=== PATIENT | female | born 1995 | race Caucasian/White ===

== ENCOUNTER 2018-01-31 10:35 | Observation (INO) | payer BC ==
[2018-01-31] MEDS ORDERED: ACETAMINOPHEN 500 MG TAB PO ONE (12:21)
[2018-01-31] MEDS ORDERED: NITROFURANTOIN MACROBID 100 MG CAP PO SCH (12:30)
--- NOTE | 2018-01-31 12:48 | GHP ---
[f rep st] HISTORY AND PHYSICAL DATE OF ADMISSION: 01/31/2018 ADMITTING DIAGNOSES: 1. Intrauterine at 23 weeks. 2. Dysuria. 3. Suprapubic pain. HISTORY OF PRESENT ILLNESS: Patient is a 22-year-old 1, para 0, at 23 weeks with estimated due date of 06/03/2018, by last menstrual period 09/03/2016 , and consistent with first trimester ultrasound per patient. Patient is visiting here from [place], where she gets her care with midwives. She presents to L&D with complaints of burning upon urination, suprapubic and urethral discomfort this morning at 6 a.m., as well as left flank pain. Patient denies any fevers, chills, nausea, or vomiting. She does endorse diarrhea this am and admits to not staying well hydrated. Patient denies any leakage of fluid or vaginal bleeding. States good movement. The patient gets her care in [place] with midwives and do not have any records. She does state she was treated for UTI and was urinating "straight blood" about 4 weeks ago, and was treated with antibiotics. Patient states is thus uncomplicated. PAST OBSTETRICAL HISTORY: This is patient's first . PAST GYNECOLOGICAL HISTORY: Cycles are regular. Patient denies a history of abnormal Pap smears or any exposure to STDs. ALLERGIES: No known drug allergies. MEDICATIONS: vitamins. PAST MEDICAL HISTORY: Unremarkable. PAST SURGICAL HISTORY: None. FAMILY HISTORY: Noncontributory. SOCIAL HISTORY: She is visiting here from [place] with her boyfriend, they are then in a week going to [place] on vacation. She denies any current alcohol, tobacco, or illicit drug use. REVIEW OF SYSTEMS: 10-point review of systems is negative. Pertinent positives noted in HPI home. PHYSICAL EXAMINATION: VITAL SIGNS: On admission, stable. Patient is afebrile. GENERAL: Patient is well-nourished, well developed female in no apparent distress. She is alert and oriented x3. SKIN: Warm, dry. No rash. CARDIOVASCULAR: Regular rate and rhythm. LUNGS: Clear to auscultation bilaterally. ABDOMEN: Gravid, soft, mild tenderness noted in suprapubic area. BACK: + CVA tenderness on the left. PELVIC: Deferred. LOWER EXTREMITIES: Normal to inspection without calf tenderness or edema. FHTs by dopplers 140's. LABORATORY DATA: Urine reveals trace ketones, 2+ blood, trace bacteria, 1+ mucus, 1+ glucose. ASSESSMENT: Patient is a 22-year-old 1, para 0, at 23 weeks who presents with dysuria, suprapubic pain, CVA tenderness consistent with UTI. PLAN: 1. Admit to Labor and Delivery for observation. 2. IV hydration. 3. Will send urine for culture. 4. Tylenol as needed for pain, as well as heating pad. 5. Will give 1 dose of Macrobid here and give her prescription with instructions to take for 7 days. 6. Plan for discharge; instructions reviewed with the patient. Recommend to increase water intake especially here at higher altitude. Complete full course of antibiotics. labor precautions given. To call our office while here in [place] with worsening symptoms, fevers/chills and Temp greater than 100.4. To keep scheduled visit in [place], will need urine SHAINA. /[id number]/MODL MTDD
== END 2018-01-31 13:30 | disposition home or self-care (01) ==
LOC: FLD 10:35
PROVIDERS: ADMIT Obstetrics & Gynecology; ATTEND Obstetrics & Gynecology
DX: O26.891 Other specified pregnancy related conditions, first trimester (principal); R30.0 Dysuria; R10.2 Pelvic and perineal pain; Z3A.23 23 weeks gestation of pregnancy
CPT/HCPCS: G0378 ×2

== ENCOUNTER 2018-02-01 10:18 | Inpatient (IN) | payer BC ==
[2018-02-01] MEDS ORDERED: PROMETHAZINE HCL 25 MG/ML INJ IVP PRN (11:06)
[2018-02-01] MEDS ORDERED: ACETAMINOPHEN 325 MG TAB PO PRN (11:07)
[2018-02-01] MEDS ORDERED: ACETAMINOPHEN 500 MG TAB PO PRN (11:22)
--- NOTE | 2018-02-01 11:22 | GHP ---
[f rep st] PREOP HISTORY AND PHYSICAL DATE OF ADMISSION: 02/01/2018 ADMITTING DIAGNOSIS: Intrauterine at 23-1/7 weeks' gestation with suspected pyelonephritis versus nephrolithiasis. HISTORY OF PRESENT ILLNESS: The patient is a 22-year-old, 1, para 0, at 23-1/7 weeks' gestat ion with an estimated due date of 06/03/2018, confirmed by a last menstrual period of 09/03/2016 and consistent with a first trimester ultrasound. 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 She is in [place] visiting family for the week. She originally pres ented to [facility] on the afternoon of the complaining of dysuria, urgency, frequency, and generalized low back pain. She was observed, had labs drawn, had a UA suggestive of acute cystitis, and she was discharged home on p.o. Macrobid. Throughout the evening, patient reported increasing pain that loc alized to her right CVA and flank, and had severe nausea/vomiting, unable to tolerate food, fluids, o r her antibiotics, and she continued to have dysuria. She denies uterine contractions, but has had i ncreasing abdominal cramping and has had diarrhea during this episode. No vaginal bleeding, no gross hematuria, and has had good movement. She has felt chills but denies fevers. Her highest tem perature was 99. She has had episodes of nausea, vomiting, diarrhea, and generalized malaise. Other than that, a 10-point review of systems is negative. The patient has no past obstetrical history. This is her first . PAST GYNECOLOGICAL HISTORY: Unremarkable. She has normal regular cycles. Denies history of abnorma l Pap smears or STDs, and she had a sure and regular last menstrual. PAST MEDICAL HISTORY: Unremarkable. PAST SURGICAL HISTORY: None. ALLERGIES: No known drug allergies. MEDICATIONS: Her only medications include vitamins, and she took 1 p.o. Macrobid upon disch arge yesterday. FAMILY HISTORY: Noncontributory. SOCIAL HISTORY: She is visiting here from [place] with her boyfriend. She is visiting family. She denies tobacco, alcohol, and drug use. PHYSICAL EXAM: VITAL SIGNS: Currently, her vital signs are stable. Her temperature is 37.2, blood pressure 116/65, heart rate of 61, respiratory rate of 16. She is 95% on room air. GENERAL: She is a well-developed, well-nourished, gravid female in no acute distress. LUNGS: Clear to auscultation bilaterally. HEART: Regular rate and rhythm. No murmurs. ABDOMEN: Gravid. No fundal tenderness . Moderate suprapubic tenderness and tenderness radiating to her right flank and significant CVA ten derness. No tenderness on her left. EXTREMITIES: No calf tenderness or redness. PELVIC: Exam was deferred. Doptones were acquired and were between the 160s and 170s. ASSESSMENT/PLAN: A 22-year-old, 1, para 0, at 23-1/7 weeks' gestation with urinary tract inf ection, possible pyelonephritis versus nephrolithiasis. The patient will be admitted for IV antibiot ics, IV antiemetics. She will have a renal ultrasound to evaluate for nephrolithiasis, and aggressiv e IV hydration and monitoring. /[id number]/MODL
[2018-02-01 11:40] LABS: PLATELET COUNT 255 10^3/uL (150-400)
[2018-02-01] MEDS: HYDROCODONE/APAP 5/325 TAB PO PRN ×3 (12:05→20:07)
[2018-02-01] MEDS: ceFAZolin 2 GM/DEXTROSE 100 ML IV SCH ×2 (13:25→22:13)
--- NOTE | 2018-02-01 19:36 | SOAPPROG ---
[facility] Progress Note Assessment/Plan: Assessment: 22 y/o @ 23 1/7 weeks with pyelonephritis vs nephrolithiasis Plan: She continues to have pain requiring PO narcotics. Renal ultrasound demonstrated hydronephrosis but was inconclusive for a stone. We are awaiting a consult from Urology today. Will continue IV Ancef, IVF and filter urine for now. 02/01/18 19:33 Subjective: Pt continues to have significant pain in right CVA, flank and groin. Brusett has helped, but seems to be wearing off sooner with each dose. She denies nausea and is tolerating reg diet. Her dysuria has improved and she has been afebrile. She is anxious to speak to Urology about possible treatment options. Objective: Vital Signs Temp Pulse Resp BP Pulse Ox 37.3 C 64 18 120/65 94 02/01/18 18:27 02/01/18 18:27 02/01/18 18:27 02/01/18 18:27 02/01/18 14:19 Laboratory Results 02/01/18 11:20 02/01/18 11:20 01/31/18 02/01/18 02/02/18 05:59 05:59 05:59 Intake Total 2700 Output Total 600 Balance 2100 - Pending Discharge Pending Discharge Within 24 Hours: No Physical Exam - Physical Exam General Appearance: WD/WN, alert, no apparent distress Neck: non-tender, full range of motion, supple Respiratory: chest non-tender, lungs clear, normal breath sounds Cardiac/Chest: regular rate, rhythm Abdomen: normal bowel sounds Back: CVA tenderness ICD10 Worksheet Patient Problems: Problems Problem Status Onset Dysuria during in second trimester Acute Suprapubic abdominal pain Acute
[2018-02-01] MEDS: ONDANSETRON 4 MG/2 ML VIAL IVP PRN (20:11)
[2018-02-01] MEDS: LR 1,000 ML IV SCH (22:13)
--- NOTE | 2018-02-01 23:01 | GCON ---
[f rep st] CONSULTATION DATE OF CONSULTATION: 02/01/2018 REASON FOR CONSULTATION: Right renal stone and evidence of pyelonephritis. HISTORY OF PRESENT ILLNESS: 22-year-old lady. She is 23 weeks' gestation. She is 1, para _ . She is here visiting from [place], [place]. She has had appropriate care. She is visiting family in [place]. Approximately 24 hours ago she started noticing dysuria, urgency, fr equency, and UTI symptoms. She was diagnosed with urinary tract infection, started on Macrobid. Pat ient clinically worsened throughout the evening, returned to the hospital due to nausea, vomiting, an d right flank pain. Ultrasound revealed a bilateral hydronephrosis with a 6 mm upper pole nonobstruc ting stone. There were ureteral jets from both ureters. Her T-max so far has been 99.0. She has [place] d no signs or symptoms of sepsis. Denies any chest pain, shortness of breath, confusion. No dyspnea on exertion. This is her . She is planning to leave in 4-5 days back to [facility]. She states that they have plans in the near future to travel out of the country, which I recommen d they cancel due to recent UTI and stone that will be unlikely to pass due to its size of 6 mm, alth ough ultrasound can be unreliable in sizing. She has never been able to get any CT scan due to her p regnancy, unable to get a CAT scan to further evaluate her ureters at this time, but there were urete ral jets bilaterally. PAST MEDICAL HISTORY: None. PAST SURGICAL HISTORY: None. ALLERGIES: None. CURRENT MEDICATIONS: Reviewed. She is on Ancef and clinically improving. FAMILY HISTORY: Noncontributory. PHYSICAL EXAMINATION: GENERAL: She is in no apparent distress. Comfortable. LUNGS: Clear. HEART : Regular. ABDOMEN: She had mild right flank tenderness. No abdominal tenderness. LABORATORY DATA: Her white count is 12.5, hematocrit 38.2, platelets 225. BMP was normal. Creatini ne and electrolytes are normal. Creatinine is 1.0. Urine culture is currently pending. ASSESSMENT AND PLAN: Patient with a nonobstructing right upper pole 6 mm stone by ultrasound with bi lateral ureteral jets noted by ultrasound. She is clinically improving with antibiotics. No signs o f sepsis at this time. She has bilateral hydronephrosis most likely from . Since she is no wilmar to have nonobstructing stone at this point, do not recommend any intervention. We discussed opti ons such as stents or percutaneous nephrostomy. She agrees with avoiding any invasive procedures at this time. She will follow up with a urologist and her OB when she gets back to [place]. She agrees that further trial may not be a good idea, would not be advisable since she has a stone which she likely would be unable to pass if it were to move. It is in the upper pole of the kidney, so it is in a position where it could move at any time into the renal pelvis or ureter. She understands that if this were to occur she would definitely need intervention if there is evidence o f renal obstruction from the stone. We discussed the risks and benefits of stent, the risks and bene fits of percutaneous nephrostomy tube placement. She agrees that the risks outweigh the benefits at this point. She was provided a copy of my business card with my contact information. /[id number]/MODL
[2018-02-02] MEDS: HYDROCODONE/APAP 5/325 TAB PO PRN ×6 (00:35→16:50)
[2018-02-02] MEDS: LR 1,000 ML IV SCH ×4 (03:59→22:32)
[2018-02-02] MEDS: ceFAZolin 2 GM/DEXTROSE 100 ML IV SCH ×3 (05:56→22:28)
[2018-02-02 06:17] LABS: PLATELET COUNT 198 10^3/uL (150-400)
[2018-02-02] MEDS: ONDANSETRON 4 MG/2 ML VIAL IVP PRN (15:51)
--- NOTE | 2018-02-02 18:24 | SOAPPROG ---
[facility] Progress Note Assessment/Plan: Assessment: 1. Intermittently severe right flank pain - unclear etiology. But I question the diagnosis of pyelonephritis in light of her UA findings, negative culture, lack of fever, questionable response to antibiotics, etc. 2. Right hydronephrosis w/ possible nonobstructing renal calculus -- u/s is notoriously inaccurate as an assessment tool for nephrolithiasis. Even if she does have a right renal stone, it is not obstructing on sonography and therefore unlikely to be the source for her symptoms. Question is whether she has some other source of right renal/ureteral obstruction causing her pain ( ureterolithiasis, ovarian vein, UPJ obstruction, etc). Plan: 1. Switch to oxycodone instead of hydrocodone. 2. MRI & KUB this evening. 3. Toradol 15 mg IV x 1 dose now. Discussed case and management plan w/ Dr. Mittal. Subjective: Having waves of severe right flank pain. No other issues. Objective: Vital Signs Temp Pulse Resp BP Pulse Ox 36.9 C 58 L 18 116/68 96 02/02/18 15:28 02/02/18 15:28 02/02/18 15:28 02/02/18 15:28 02/02/18 15:28 Laboratory Results 02/02/18 06:00 02/01/18 11:20 02/01/18 02/02/18 02/03/18 05:59 05:59 05:59 Intake Total 4650 Output Total 1900 2300 Balance 2750 -2300 Physical Exam - Physical Exam General Appearance: alert, moderate distress (tearful) Abdomen: other (gravid) Neuro/Psych: alert, normal mood/affect, oriented x 3 ICD10 Worksheet Patient Problems: Problems Problem Status Onset Dysuria during in second trimester Acute Suprapubic abdominal pain Acute
[2018-02-02] MEDS ORDERED: KETOROLAC 15 MG/1 ML SDV IVP ONE (18:26)
--- NOTE | 2018-02-02 20:40 | OBPROG ---
Labor Progress Note Assessment/Plan: Assessment: iup 23 2/7 weeks hospital day 2 suspected nephrolitiasis possible pyelonephritis Plan: additional imaging per nephrology continue antibiotics change pain medication to percocet and oxy ir for break through pain due to tylenol max single dose toradol continued observations 02/02/18 20:35 Subjective/Intrapartum Course: 02/02/18 20:37 patient is doing well overall. has had several episodes of significant increase in pain throughout the day. pain in right flank and radiates to the front. reviewed urinalysis which showed primarily rbc's. discussed with urology who will do additional imagine. patient good movement. denies loss of fluid or vaginal bleeding. nausea resolved. no fevers or chills. long discussion with patient and fob about management plan, imaging safety and pain medication. patient and fob both feel like they understand more of what is going on. Objective: 02/02/18 06:00 02/01/18 11:20 Patient ABO/Rh O POSITIVE 02/01/18 11:20 Total Bilirubin 0.4 mg/dL (0.1-1.4) 02/01/18 11:20 AST 26 IU/L (14-46) 02/01/18 11:20 ALT 25 IU/L (9-52) 02/01/18 11:20 Temp Pulse Resp BP Pulse Ox 36.5 C 69 18 122/63 H 95 02/02/18 19:17 02/02/18 19:17 02/02/18 19:17 02/02/18 19:17 02/02/18 19:17 - SVE Membranes: Intact - FHR Assessment Manning FHR (bpm): 150 (doppler) - AP Antepartum Course: 02/02/18 20:40 care in [place]. here for vacation. developed dysuria and then flank pain. - Physical Exam General Appearance: WD/WN, alert, no apparent distress Neck: non-tender, full range of motion, supple Respiratory: chest non-tender, lungs clear, normal breath sounds Cardiac/Chest: normal peripheral pulses, regular rate, rhythm Abdomen: normal bowel sounds, non-tender, other (gravid) Extremities: normal range of motion, non-tender, normal inspection, normal capillary refill Back: CVA tenderness (right) Skin: normal color, warm/dry Neuro/Psych: no motor/sensory deficits, alert, normal mood/affect, oriented x 3 ICD10 Worksheet Patient Problems: Problems Problem Status Onset Dysuria during in second trimester Acute Suprapubic abdominal pain Acute
[2018-02-02] MEDS ORDERED: oxyCODONE IR 5 MG TAB PO PRN (20:41)
[2018-02-03] MEDS: OXYCODONE/APAP 5/325 TAB PO PRN ×4 (02:30→18:00)
[2018-02-03] MEDS: ONDANSETRON 4 MG/2 ML VIAL IVP PRN (02:31)
[2018-02-03] MEDS: ceFAZolin 2 GM/DEXTROSE 100 ML IV SCH ×2 (05:54→14:28)
[2018-02-03] MEDS: TAMSULOSIN HCL 0.4 MG CAP PO SCH ×2 (08:14→09:00)
[2018-02-03] MEDS: LR 1,000 ML IV SCH ×2 (10:10→16:02)
--- NOTE | 2018-02-03 11:02 | PDMN ---
Medical Necessity Medical necessity: MCG: M300 UTI, A-2 days: 23wk , possible pyelonephritis vs nephrolithiasis, severe pain, pending MRI and KUB, continuing IV antibx, IV fluids, and IV antiemetics, possible renal/ureteral obstruction, urology consults. Elevated WBC. Status change to Inpatient 02/03/18 @ 1044.
[2018-02-03] MEDS ORDERED: SENNOSIDES 1 TAB PO SCH (11:15)
--- NOTE | 2018-02-03 11:20 | OBPROG ---
Labor Progress Note Assessment/Plan: Assessment: @ 23 3/7 weeks with R CVA pain, suspected nephrolithiasis, doubt pyelonephritis HD #3 Plan: Pt is stable, afebrile this am Pain is controlled with Percocet and Oxy IR MRI results pending Continue antibiotics and IVFs Pt is NPO for now, await Urology input 02/03/18 11:23 Subjective/Intrapartum Course: 02/02/18 20:37 patient is doing well overall. has had several episodes of significant increase in pain throughout the day. pain in right flank and radiates to the front. reviewed urinalysis which showed primarily rbc's. discussed with urology who will do additional imagine. patient good movement. denies loss of fluid or vaginal bleeding. nausea resolved. no fevers or chills. long discussion with patient and fob about management plan, imaging safety and pain medication. patient and fob both feel like they understand more of what is going on. 02/03/18 11:20 Pt seen and examined. Pain is well controlled, except for when pain meds wear off. Most of her pain is in R flank. Taking Percocet and Oxy IR. NPO currently. Denies any VB or LOF. Passed a tubular structure with blood this morning. Good FM noted. Denies any f/c/n/v. Objective: 02/02/18 06:00 02/01/18 11:20 Patient ABO/Rh O POSITIVE 02/01/18 11:20 Total Bilirubin 0.4 mg/dL (0.1-1.4) 02/01/18 11:20 AST 26 IU/L (14-46) 02/01/18 11:20 ALT 25 IU/L (9-52) 02/01/18 11:20 Temp Pulse Resp BP Pulse Ox 36.8 C 57 L 14 111/62 95 02/03/18 08:00 02/03/18 08:00 02/03/18 08:00 02/03/18 08:00 02/03/18 08:00 - SVE Membranes: Intact - AP Antepartum Course: 02/02/18 20:40 care in [place]. here for vacation. developed dysuria and then flank pain. - Physical Exam General Appearance: WD/WN, alert, no apparent distress Abdomen: normal bowel sounds, non-tender (mild suprapubic tenderness), other ( gravid) Extremities: non-tender, normal inspection Back: CVA tenderness (Mild on R side) Skin: normal color, warm/dry Neuro/Psych: alert, normal mood/affect, oriented x 3 ICD10 Worksheet Patient Problems: Problems Problem Status Onset Dysuria during in second trimester Acute Suprapubic abdominal pain Acute
[2018-02-03 17:01] VITALS: BP 116/68
--- NOTE | 2018-02-03 17:45 | SOAPPROG ---
[facility] Progress Note Assessment/Plan: Assessment: 1. Intermittently severe right flank pain - likely due to partial extrinsic ureteral obstuction from gravid uterus. Unlikely she ever had pyelonephritis. 2. Right hydroureteronephrosis due to extrinsic ureteral compression between iliac vessels and gravid uterus -- I have reviewed MRI images w/ Giulia Dudley, and Major, and all of us are in agreement w/ the MRI findings. She does not have ureterolithiasis. Management options would include medical & conservative management with oxycodone IR prn vs. nephrostomy tube placement. Each option compared and contrasted in detail today and all questions answered. I would recommend a conservative approach for at least the next 1-2 weeks, then more seriously consider nephrostomy tube after that if she continues to have episodes of severe pain. Plan: 1. Pt. is in agreement with trying an outpatient conservative approach. Therrefore, continue oxycodone IR (this is working much better for pain control than [place]). Rx. placed on chart. 2. Recommend she lie on her left side & avoid lying either supine or on her right side. 3. May discharge whenever deemed appropriate by OB service. 4. I have recommended she obtain copies of her MRI images and take them back home w/ her. Pt. also has my name and phone number if needed. Subjective: Feels better today. Objective: Vital Signs Temp Pulse Resp BP Pulse Ox 36.9 C 65 12 116/68 97 02/03/18 16:59 02/03/18 16:59 02/03/18 16:59 02/03/18 16:59 02/03/18 16:59 Microbiology 01/31/18 11:30 Urine Culture - Final Urine,Clean Catch One [place] Type Laboratory Results 02/02/18 06:00 02/01/18 11:20 02/02/18 02/03/18 02/04/18 05:59 05:59 05:59 Intake Total 4650 1999 Output Total 1900 0 2024 Balance [id number] Physical Exam - Physical Exam General Appearance: WD/WN, alert, no apparent distress Abdomen: soft (gravid) Neuro/Psych: alert, normal mood/affect, oriented x 3 ICD10 Worksheet Patient Problems: Problems Problem Status Onset Dysuria during in second trimester Acute Suprapubic abdominal pain Acute
== END 2018-02-03 20:37 | disposition home or self-care (01) | DRG 781 ==
LOC: INTOOBSV 10:18 → FOB 10:18 → OBSVTOIN 02-03 10:44
PROVIDERS: ADMIT Obstetrics & Gynecology; ATTEND Obstetrics & Gynecology
DX: O26.892 Other specified pregnancy related conditions, second trimester (principal); N13.39 Other hydronephrosis; Z3A.23 23 weeks gestation of pregnancy
CPT/HCPCS: G0378; J0690; J1885; J2405